=== PATIENT | female | born 1975 | race Caucasian/White ===

== ENCOUNTER → 2025-05-02 08:17 | Outpatient (CLI) | payer OTHER, SELFPAY ==
[2025-05-02 18:59] LABS: Add Manual Diff / Slide Review NO; Hematocrit 33.8 % (36-46); Hemoglobin 11.4 g/dL (12.0-16.0); Lymphocytes Absolute Auto 1000 /uL (1100-4500); Mean Corpuscular HGB Conc 33.8 % (30-36); Mean Corpuscular Hemoglobin 30.4 PG (26-34); Mean Corpuscular Volume 90.0 fL (80-100); Platelet Count 237 X10^3/uL (150-400)
[2025-05-02 19:11] LABS: Hemoglobin A1C% w Est Avg Glu 5.2 % (4.0-6.0)
[2025-05-02 19:17] LABS: Blood Urea Nitrogen 22 mg/dL (7-17); Calcium 9.1 mg/dL (8.4-10.2); Carbon Dioxide 31 mmol/L (22-32); Chloride 103 mmol/L (98-107); Cholesterol 121 mg/dL (140-199); Estimated Glomerular Filt Rate > 60 mL/min (>60); Glucose 94 mg/dL (70-99); HDL Cholesterol 79 mg/dL (40-60); HEMOLYSIS < 15 (0-50); Potassium 4.5 mmol/L (3.4-5.1); Sodium 138 mmol/L (137-145); Triglycerides 42 mg/dL (35-150)
[2025-05-02 19:53] LABS: TSH w/ Reflex to FT4 1.47 uIU/mL (0.47-4.68)
[2025-05-02 20:13] LABS: Vitamin B12 274 pg/mL (239-931)
[2025-05-03 15:44] LABS: HIV 1 & 2 Ab/Ag 4th Gen Combo NEGATIVE (NEGATIVE); Hep C Virus Ab w/Reflex Quant NEGATIVE s/c (NEGATIVE)
== END ==
PROVIDERS: Physician Assistant; PCP Family Medicine; Visit Provider Family Medicine
DX: D64.9 Anemia, unspecified (principal); I10 Essential (primary) hypertension; F31.81 Bipolar II disorder; E53.8 Deficiency of other specified B group vitamins; E78.2 Mixed hyperlipidemia; Z13.1 Encounter for screening for diabetes mellitus; Z11.4 Encounter for screening for human immunodeficiency virus [HIV]; Z11.59 Encounter for screening for other viral diseases; Z12.11 Encounter for screening for malignant neoplasm of colon
CPT/HCPCS: 80048; 80061; 82274; 82607; 83036; 84443; 85025; 86803; 87389